=== PATIENT | male | born 1950 | race Caucasian/White ===

== ENCOUNTER 2019-03-03 13:52 | Inpatient (IN) | payer MEDICARE, MEDICAID ==
[~2019-03-03] VITALS: Ht 172.7 cm; Wt 78.6 kg
[2019-03-03] MEDS ORDERED: LORA-259 PO (17:24)
[2019-03-03] MEDS ORDERED: UNK BP MEDICATION PO (17:24)
[2019-03-03] MEDS ORDERED: SERT50TA PO (17:24)
[2019-03-03 17:39] VITALS: BP 152/100
[2019-03-03] MEDS ORDERED: hydrALAZINE HCL 25 MG TABLET PO PRN (18:00)
[2019-03-03] MEDS ORDERED: TEMAZEPAM 7.5 MG CAPSULE PO PRN (18:00)
[2019-03-03] MEDS ORDERED: PERMETHRIN 59 ML BOTTLE TP ONE (18:00)
[2019-03-03] MEDS ORDERED: MAG HYDROX/AL HYDROX/SIMETH 30 ML UDC PO PRN (18:00)
[2019-03-03] MEDS ORDERED: MAGNESIUM HYDROXIDE 30 ML UDC PO PRN (18:00)
--- NOTE | 2019-03-03 18:00 | NUR ---
MAIL PROCESSING ASSOCIATE NOTES PATIENT DIRECT ADMIT FROM [facility] ER ON DX OF SUICIDAL IDEATION. PATIENT A/O X3/4, DISTENDED ABDOMEN, NO ACUTE RESPIRATORY DISTRESS, COOPERATIVE. PATIENT DENIED SI/HI/AVH AT THIS TIME. FACE TO FACE ASSESSMENT DONE PATIENT ANXIOUS, DEPRESS, SHAKING HANDS. V/S TAKEN BP -152/100, P-107, R-20, T-97.8, O2-96 ROM AIR. SKIN ASSESSMENT DONE PICTURE TAKEN, FOUND PATIENT HAS A LICE ON HAIR. PATIENT TAKE SHOWER. PATIENT UNSTEADY GAIT USING WALKER. BELONGING AND CONTRABAND CHECKED. DR AHUJA AND DR KENT AWARE OF NEW PATIENT AND MEDICATION. CALL GARNETT NEAR TO REACH. CONTINUED MONITORING. ENDORSED ONCOMING NURSE FOLLOW PLAN OF CARE.
[2019-03-03] MEDS: LORAZEPAM 0.5 MG TABLET PO PRN (18:37)
[2019-03-03] MEDS: CHLORDIAZEPOXIDE HCL 25 MG CAPSULE PO SCH (18:37)
--- NOTE | 2019-03-03 18:37 | NUR ---
RN NOTES ADMINISTERED ATIVAN 1 MG PO PRN FOR ANXIETY PER PATIENT REQUEST, V/S TAKEN BP 152/100, P-107. CONTINUED MONITORING.
[2019-03-03 20:19] VITALS: BP 138/92
[2019-03-04 07:43] LABS: BILIRUBIN,TOTAL 1.1 mg/dL (0.2-1.0); CALCIUM, SERUM 8.3 mg/dL (8.5-10.1); CREATININE 0.8 mg/dL (0.6-1.3); POTASSIUM 3.7 mmol/L (3.5-5.1); TOTAL PROTEIN, SERUM 6.1 g/dL (6.4-8.2)
[2019-03-04 07:57] LABS: CHOLESTEROL 155 mg/dL (<200); HDL CHOLESTEROL 58 mg/dL (40-60); LDL 85 mg/dL (0-99); TRIGLYCERIDES 71 mg/dL (30-150)
[2019-03-04 08:00] VITALS: BP 138/69
[2019-03-04 08:34] LABS: THYROID STIMULATING HORMONE 2.049 uIU/mL (0.358-3.74)
[2019-03-04] MEDS: CHLORDIAZEPOXIDE HCL 25 MG CAPSULE PO SCH ×2 (09:28→17:39)
[2019-03-04] MEDS: LORAZEPAM 0.5 MG TABLET PO PRN ×2 (09:55→17:39)
[2019-03-04 16:00] VITALS: BP 132/71
[2019-03-04 20:00] VITALS: BP 125/72
[2019-03-04] MEDS: risperiDONE 1 MG TABLET PO SCH (20:54)
[2019-03-04] MEDS: SERTRALINE HCL 50 MG TABLET PO SCH (20:54)
[2019-03-04] MEDS: LITHIUM CARBONATE 150 MG CAPSULE PO SCH (22:05)
[2019-03-05 08:00] VITALS: BP 121/53
[2019-03-05] MEDS: LITHIUM CARBONATE 150 MG CAPSULE PO SCH ×2 (08:11→21:10)
[2019-03-05] MEDS: SERTRALINE HCL 50 MG TABLET PO SCH (08:11)
[2019-03-05] MEDS: CHLORDIAZEPOXIDE HCL 25 MG CAPSULE PO SCH ×2 (08:11→17:04)
[2019-03-05] MEDS: risperiDONE 1 MG TABLET PO SCH ×2 (08:11→20:44)
--- NOTE | 2019-03-05 15:13 | NUR ---
INITIAL DISCHARGE PLAN: Per pt he wishes to be discharged to a SNF. SW will help form a safe and proper discharge in collaboration with MD.
[2019-03-05 16:00] VITALS: BP 132/64
--- NOTE | 2019-03-05 16:00 | NUR ---
GROUP NOTE: Pt unable to attend due to being in isolation.
[2019-03-05 20:20] VITALS: BP 109/70
[2019-03-06 08:00] VITALS: BP 97/66
[2019-03-06] MEDS: CHLORDIAZEPOXIDE HCL 25 MG CAPSULE PO SCH ×2 (08:22→16:19)
[2019-03-06] MEDS: LITHIUM CARBONATE 150 MG CAPSULE PO SCH ×2 (08:22→21:15)
[2019-03-06] MEDS: SERTRALINE HCL 50 MG TABLET PO SCH (08:22)
[2019-03-06] MEDS: risperiDONE 1 MG TABLET PO SCH ×2 (08:22→21:15)
--- NOTE | 2019-03-06 15:40 | NUR ---
GROUP NOTE: SW prompted pt to attend group therapy on this present day pt stated, "I just want to rest right now it's been a long day."
--- NOTE | 2019-03-06 15:42 | NUR ---
GPS RN NOTE: PT HAIR WAS CHECKED NO LICE NOTED,DC ISOLATION.CN AWARE.
[2019-03-06 16:00] VITALS: BP 100/72
[2019-03-06 20:34] VITALS: BP 103/61
[2019-03-07 08:00] VITALS: BP 112/73
[2019-03-07] MEDS: risperiDONE 1 MG TABLET PO SCH ×2 (08:38→20:59)
[2019-03-07] MEDS: CHLORDIAZEPOXIDE HCL 25 MG CAPSULE PO SCH ×2 (08:38→17:34)
[2019-03-07] MEDS: SERTRALINE HCL 50 MG TABLET PO SCH (08:38)
[2019-03-07] MEDS: LITHIUM CARBONATE 150 MG CAPSULE PO SCH ×2 (08:41→20:59)
--- NOTE | 2019-03-07 15:20 | NUR ---
Group Note: SW prompted pt to attend group therapy but the pt was having difficulty with his speech and stated that he would like to remained seated in the activity room but not participate.
[2019-03-07 16:00] VITALS: BP 114/66
[2019-03-07] MEDS ORDERED: POLYVINYL ALCOHOL 15 ML BOTTLE EACHEYE PRN (17:00)
[2019-03-07 20:23] VITALS: BP 102/69
[2019-03-08 08:00] VITALS: BP 127/84
--- NOTE | 2019-03-08 08:34 | NUR ---
GRETA faxed SNF referral to Kait, hospital admissions officer at [facility] Address: [address], [place], [place] [address] for review.
[2019-03-08] MEDS: CHLORDIAZEPOXIDE HCL 25 MG CAPSULE PO SCH ×2 (09:19→16:27)
[2019-03-08] MEDS: risperiDONE 1 MG TABLET PO SCH ×2 (09:19→21:25)
[2019-03-08] MEDS: LITHIUM CARBONATE 150 MG CAPSULE PO SCH ×2 (09:19→21:24)
[2019-03-08] MEDS: SERTRALINE HCL 50 MG TABLET PO SCH (09:20)
--- NOTE | 2019-03-08 11:06 | NUR ---
SW received a call from Kait, hearing screen coordinator at [facility] Address: [address], [place], [place] [address] stating that pt cannot be accepted due to his substance abuse.
--- NOTE | 2019-03-08 11:09 | NUR ---
GRETA faxed SNF referral to [facility] ([facility]) Address: [facility] [place] [address] for review.
--- NOTE | 2019-03-08 13:11 | NUR ---
SW received a call from Naima, vocational coordinator at [facility] ([facility]) Address: [facility] [place] [address] stating pt has been accepted to the facility.
--- NOTE | 2019-03-08 13:15 | NUR ---
Group Note Goal: Patient will attend group being held today from 10am -10:30 in the activities room and participate and/or actively listen to peers and be respectful. Intervention: SW invited patient to attend group session with peers regarding their support system. Response: Patient was sleeping and did not attend group. Plan: Patient will be invited to attend next social director group session held.
[2019-03-08 16:00] VITALS: BP 96/70
--- NOTE | 2019-03-08 17:54 | NUR ---
GPS RN NOTE PAGED EPIC FOR REGARDING PT LEFT EYE WHICH IS RED AND NOW HAS WHITE, STICKY DISCHARGE THAT IS NOT ALLEVIATED BY ARTIFICIAL TEAR GTTS ORDERED. AWAITING RESPONSE. PT DENIES PAIN OR CHANGES IN VISION AT THIS TIME.
--- NOTE | 2019-03-08 19:39 | NUR ---
GPS RN NOTE, RECEIVED PATIENT AWAKE AND IN BED, NO S/S OR COMPLAINTS OF PAIN AT THIS TIME. PATIENT IS DISPLAYING NO S/S OF APPARENT DISTRESS AT THIS TIME. PATIENT BREATHING IS UNLABORED WITH EQUAL RISE AND FALL OF THE CHEST. PATIENT IS ALERT AND ORIENTED X 1-2 ON ROOM AIR WITH A SPO2 OF 94 %. PATIENT IS MED COMPLAINT, DISORGANIZED, ANXIOUS, COOPERATIVE, CONFUSED, AND NEEDS REORIENTATION. PATIENT DENIES SUICIDE AND HOMICIDAL IDEATIONS AT THIS TIME. PATIENT ASSISTED WITH TURNING AND REPOSITIONING Q2HR AND PRN FOR COMFORT AND CIRCULATION. PATIENT HAS NO NEEDS AT THIS TIME. PATIENT EDUCATED ON THE USE OF THE CALL AGRNETT. PATIENT BED SIDE RAILS ARE UP X 2 FOR SAFETY, BED IS LOCKED, AND LOW WILL CONTINUE TO MONITOR AND MAINTAIN SAFETY.
[2019-03-08 20:00] VITALS: BP 109/68
[2019-03-08] MEDS ORDERED: CIPROFLOXACIN HCL 0.3% 5 ML BOTTLE EACHEYE SCH (20:00)
[2019-03-08] MEDS: CIPROFLOXACIN HCL 0.3% 5 ML BOTTLE EACHEYE SCH ×2 (21:25→23:39)
[2019-03-09] MEDS ORDERED: Z GUARD REMEDY 2 OZ OINT TP PRN (03:30)
[2019-03-09] MEDS: CIPROFLOXACIN HCL 0.3% 5 ML BOTTLE EACHEYE SCH ×3 (05:15→18:18)
[2019-03-09 08:00] VITALS: BP 135/75
[2019-03-09] MEDS: risperiDONE 1 MG TABLET PO SCH ×2 (08:29→19:46)
[2019-03-09] MEDS: CHLORDIAZEPOXIDE HCL 25 MG CAPSULE PO SCH ×2 (08:29→16:44)
[2019-03-09] MEDS: SERTRALINE HCL 50 MG TABLET PO SCH (08:29)
[2019-03-09] MEDS: LITHIUM CARBONATE 150 MG CAPSULE PO SCH ×2 (08:29→20:34)
[2019-03-09 15:56] VITALS: BP 104/60
[2019-03-09] MEDS: ACETAMINOPHEN 325 MG TABLET PO PRN (19:44)
--- NOTE | 2019-03-09 19:45 | NUR ---
C/O PAIN ON BOTH LEGS, TYLENOL 650 MG PO GIVEN.
[2019-03-09 20:00] VITALS: BP 106/70
[2019-03-10] MEDS: CIPROFLOXACIN HCL 0.3% 5 ML BOTTLE EACHEYE SCH ×4 (00:42→17:12)
[2019-03-10 08:00] VITALS: BP 103/63
[2019-03-10] MEDS: risperiDONE 1 MG TABLET PO SCH (08:30)
[2019-03-10] MEDS: CHLORDIAZEPOXIDE HCL 25 MG CAPSULE PO SCH ×2 (08:30→16:06)
[2019-03-10] MEDS: LITHIUM CARBONATE 150 MG CAPSULE PO SCH (08:30)
[2019-03-10] MEDS: SERTRALINE HCL 50 MG TABLET PO SCH (08:30)
[2019-03-10] MEDS: ACETAMINOPHEN 325 MG TABLET PO PRN (15:33)
--- NOTE | 2019-03-10 15:48 | NUR ---
pt with temp of 100.2 F. pt given tylenol po x 1.
[2019-03-10 16:00] VITALS: BP 90/58
--- NOTE | 2019-03-10 16:54 | NUR ---
mentation/baseline changed from earlier this morning. pt drowsy/lethargic. difficult to arouse. going to sleep without stimuli. vital sign 100.2 F (tylenol given), multiple BP reading in the mid 80s'; latest 83/58, heart rate in the 70s, and room air saturating 93-94%. X-ray ordered (reason = congestion/sob) and read to the primary doctor. per MD, possible early onset pneumonia. ok to transfer to tele floor. psych md notified and agrees with transfer. per psych md to continue psych meds and continue hold. joan zavala at bedside for eval. will provide further care once patient is transfer to tele floor.
--- NOTE | 2019-03-10 18:04 | NUR ---
pt accepted 3rd floor tele unit. pt going to room 324A. Accepting practitioner is ARUN Umaña. Report given to receiving nurse, CARMEN Gracia. exit care done. skin clear. belongings with patient. original hold with given to primary nurse. pt left in stable condition.
[2019-03-11] MEDS ORDERED: LITH300T3 PO (01:14)
[2019-03-11] MEDS ORDERED: LORA-259 PO (01:14)
[2019-03-11] MEDS ORDERED: CHLO25CA22 PO (01:14)
[2019-03-11] MEDS ORDERED: HYDR-4076 PO (01:14)
[2019-03-11] MEDS ORDERED: CIPR2.5D LEFTEYE (01:14)
[2019-03-11] MEDS ORDERED: RISP1TAB7 PO (01:14)
[2019-03-11] MEDS ORDERED: CIPR2.5D RIGHTEYE (01:14)
[2019-03-11] MEDS ORDERED: POLY15DR40 OP (01:14)
[2019-03-11] MEDS ORDERED: SERT50TA PO (01:14)
--- NOTE | 2019-03-11 09:45 | NUR ---
DISCHARGE NOTE: pt was discharged on 03/10/19 to Telemetry Unit due to Pneumonia.
== END 2019-03-10 18:38 | disposition short-term general hospital (02) | DRG 885 ==
LOC: GPS 16:45
PROVIDERS: ADMIT Psychiatry & Neurology Psychiatry; ATTEND Student in an Organized Health Care Education/Training Program
DX: F31.5 Bipolar disorder, current episode depressed, severe, with psychotic features (principal); F10.239 Alcohol dependence with withdrawal, unspecified; E44.1 Mild protein-calorie malnutrition; I10 Essential (primary) hypertension; B85.2 Pediculosis, unspecified; E88.09 Other disorders of plasma-protein metabolism, not elsewhere classified; Z68.26 Body mass index [BMI] 26.0-26.9, adult
CPT/HCPCS: 36415; 71045-TC; 80053-TC; 80061-TC; 84443-TC; 87081-TC; 97116-TC; 97530-TC

== ENCOUNTER 2019-03-10 18:48 | Inpatient (IN) | payer MEDICARE, OTHER ==
[~2019-03-10] VITALS: Ht 172.7 cm; Wt 79.4 kg
[2019-03-10 08:00] VITALS: BP 95/53
--- NOTE | 2019-03-10 18:52 | NUR ---
ADMISSION NOTE PT BROUGHT UP VIA BED AT THIS TIME, A/O X1-2 BREATHING EVEN AND UNLABORED ON RA, NO S/S OF ANY DISTRESS OR PAIN NOTED AT THIS TIME, RIGHT HAND GAUGE 20 IV STARTED, ON A 5250 HOLD WITH SITTER PRESENT AT BEDSIDE, HOSPITALIST SANDY MADE AWARE PT ON THE FLOOR AWAITING ADMITTING ORDERS. VS FOLLOWS: BP 93/56, PULSE 82, RR 20, TEMP 98.4, O2 93% ON RA. SAFETY PRECAUTIONS IN PLACE, CALL LIGHT WITHIN REACH, WILL ENDORSE TO NIGHT RN FOR STARR.
[2019-03-10 19:30] VITALS: BP 95/55
[2019-03-10] MEDS ORDERED: HYDROCODONE/APAP 5/325MG 1 EACH TABLET PO PRN (19:30)
[2019-03-10] MEDS ORDERED: Z GUARD REMEDY 2 OZ OINT TP PRN (19:30)
[2019-03-10] MEDS ORDERED: ZOLPIDEM TARTRATE 5 MG TABLET PO PRN (19:30)
[2019-03-10] MEDS ORDERED: ONDANSETRON HCL/PF 4 MG/2 ML VIAL IVP PRN (19:30)
[2019-03-10] MEDS ORDERED: MAGNESIUM HYDROXIDE 30 ML UDC PO PRN (19:30)
[2019-03-10] MEDS: ACETYLCYSTEINE 20% SOLN 800 MG/4 ML VIAL NEB SCH ×2 (19:30→22:42)
[2019-03-10] MEDS ORDERED: ACETAMINOPHEN 325 MG TABLET PO PRN (19:30)
--- NOTE | 2019-03-10 19:30 | NUR ---
GEAR GRINDER OPENING NOTES: RECEIVED PT ON 2LPM VIA NC AND IS TOLERATING WELL. NOTED PT TO BE VERY CONGESTED. PT ALERT AND ORIENTED TO SELF ONLY. PT HAS UNCLEAR SPEECH. PT REORIENTED. PT ALSO LETHARGIC AND IS AROUSABLE TO TOUCH. PT HAS IV ON R HAND #20G AND IS TO BE STARTED ON IV NS AT 100ML/HR. PT ON TELE MONITOR AND READING SHOWS SR 81. SITTER AT BEDSIDE FOR SAFETY PRECAUTIONS. BED KEPT IN LOW, LOCKED POSITION, AND SIDE RAILS X 2UP. WILL CONTINUE TO MONITOR PT.
[2019-03-10] MEDS: IV NS 0.9% 1,000 ML IV PRN (19:31)
[2019-03-10] MEDS: IPRATROPIUM NEB FS 0.5 MG/2.5 ML AMPUL.NEB NEB SCH ×2 (19:36→22:42)
[2019-03-10] MEDS: ALBUTEROL HALF STRENGTH 1.25 MG/3 ML VIAL.NEB NEB SCH ×2 (19:36→22:42)
--- NOTE | 2019-03-10 19:48 | NUR ---
AIR CONTROL/ANTI AIR WARFARE OFFICER NOTES: SPOKE WITH INTAKE CLINICIAN BEAR DELGADO. KEEP PT NPO FOR NOW HE IS VERY CONGESTED. ORDER STAT CBC, CMP, MAG, AND PHOS. ALSO ORDER SWALLOW AFTER AFTER HIS SECRETIONS CLEAR UP. Addendum: 03/10/19 at 2346 by WALT CHAMPAGNE RN SWALLOW EVAL
[2019-03-10 19:50] LABS: BASOPHILS # (AUTO) 0.1 /CMM (0.0-0.2); BASOPHILS % (AUTO) 0.4 % (0.0-2.0); EOSINOPHILS % (AUTO) 0.9 % (0.0-6.0); HEMATOCRIT 39 % (39-51); HEMOGLOBIN 13.2 g/dL (13.5-17.5); LYMPHOCYTES # (AUTO) 1.4 /CMM (0.8-4.8); LYMPHOCYTES % (AUTO) 10.4 % (20.0-44.0); MEAN CORPUSCULAR HGB CONC 34 g/dl (31.0-36.0); MEAN CORPUSCULAR VOLUME 101 fL (80-96); MONOCYTES # (AUTO) 1.6 /CMM (0.1-1.30); MONOCYTES % (AUTO) 11.8 % (2.0-12.0); NEUTROPHILS # (AUTO) 10.4 /CMM (1.8-8.9); NEUTROPHILS % (AUTO) 76.5 % (43.0-81.0); PLATELET COUNT (AUTO) 228 /CMM (150-450); RED BLOOD CELL COUNT(AUTO) 3.86 MIL/uL (4.5-6.0); WHITE BLOOD COUNT (AUTO) 13.6 K/uL (4.3-11.0)
--- NOTE | 2019-03-10 19:58 | NUR ---
DATA CENTER PROJECT MANAGER NOTES: COLLECTED MRSA SWAB FOR BOTH NARES AND PLACED IN REFRIGERATOR.
[2019-03-10 20:24] LABS: ALBUMIN 2.5 g/dL (3.4-5.0); CALCIUM, SERUM 8.1 mg/dL (8.5-10.1); MAGNESIUM 2.1 mg/dL (1.8-2.4); PHOSPHORUS 4.5 mg/dL (2.5-4.9)
[2019-03-10 20:38] LABS: BILIRUBIN,TOTAL 0.8 mg/dL (0.2-1.0); TOTAL PROTEIN, SERUM 5.9 g/dL (6.4-8.2)
[2019-03-10] MEDS ORDERED: IV NS 0.9% 1,000 ML IV PRN (21:00)
[2019-03-10] MEDS ORDERED: PIPERACILLIN /TAZOBACTAM 3.375 G VIAL IV ONE (23:31)
[2019-03-10] MEDS: PIPERACILLIN /TAZOBACTAM 3.375 G in IV NS 0.9% 50 ML IV SCH (23:34)
--- NOTE | 2019-03-10 23:34 | NUR ---
SET ILLUSTRATOR NOTES: HAD TO MANUALLY ADMIN ZOSYN 3.375G CHARGE NURSE OVERRODE MED. BARGUN NOT SCANNING ABX.
[2019-03-11] VITALS: BP 116/77
[2019-03-11] MEDS ORDERED: POLY15DR40 OP (01:14)
[2019-03-11] MEDS ORDERED: CIPR2.5D LEFTEYE (01:14)
[2019-03-11] MEDS ORDERED: CIPR2.5D RIGHTEYE (01:14)
[2019-03-11] MEDS ORDERED: LITH300T3 PO (01:14)
[2019-03-11] MEDS ORDERED: SERT50TA PO (01:14)
[2019-03-11] MEDS ORDERED: CHLO25CA22 PO (01:14)
[2019-03-11] MEDS ORDERED: HYDR-4076 PO (01:14)
[2019-03-11] MEDS ORDERED: LORA-259 PO (01:14)
[2019-03-11] MEDS ORDERED: RISP1TAB7 PO (01:14)
[2019-03-11] MEDS: ALBUTEROL HALF STRENGTH 1.25 MG/3 ML VIAL.NEB NEB SCH ×6 (02:47→23:14)
[2019-03-11] MEDS: IPRATROPIUM NEB FS 0.5 MG/2.5 ML AMPUL.NEB NEB SCH ×6 (02:47→23:14)
--- NOTE | 2019-03-11 03:54 | NUR ---
SILO PAINTER NOTES: BLADDER SCAN PERFORMED. 174ML NOTED. WILL REASSESS.
[2019-03-11 04:00] VITALS: BP 100/43
[2019-03-11] MEDS: IV NS 0.9% 1,000 ML IV PRN ×2 (05:13→20:10)
[2019-03-11] MEDS ORDERED: PIPERACILLIN /TAZOBACTAM 3.375 G VIAL IV ONE (05:40)
[2019-03-11] MEDS: PIPERACILLIN /TAZOBACTAM 3.375 G in IV NS 0.9% 50 ML IV SCH (05:43)
--- NOTE | 2019-03-11 05:43 | NUR ---
PSYCHOLOGICAL SCIENCE PROFESSOR NOTES: ZOSYN 3.375G WAS MANUALLY ADMINISTERED BAR GUN NOT SCANNING MED. CHARGE NURSE OVERRODE MED.
--- NOTE | 2019-03-11 06:38 | NUR ---
MATERIAL CUTTER NOTES: PERFORMED BLADDER SCAN AND SAW THAT THERE IS 349-420ML IN BLADDER. INFORMED FILENET P8 DEVELOPER HARINDER MILLARD. NO ORDERS AT THIS TIME.
--- NOTE | 2019-03-11 06:38 | NUR ---
EPIC WILLOW SPECIALIST CLOSING NOTES: ALL NEEDS WERE ATTENDED AND ANTICIPATED FOR. PT KEPT CLEAN, DRY, AND COMFORTABLE. SITTER REMAINS AT BEDSIDE. PT NPO UNTIL SPEECH THERAPIST ASSESSES PT. PT HAS IV ON R HAND #20G AND IS BEING INFUSED WITH IV NS AT 100ML/HR. PT MORE ALERT COMPARED TO BEGINNING OF SHIFT. PT A/XO2-3. PT REMAINS ON 2LPM VIA NC AND IS TOLERATING WELL. ALTHOUGH SPEECH IS UNCLEAR, PT ABLE TO MAKE NEEDS KNOWN. PT ON TELE MONITOR AND READING SHOWS SR 69.
--- NOTE | 2019-03-11 06:49 | NUR ---
KAYDEN MORALES NOTES: ARUN MILLARD JUST ORDERED PLASENCIA CATHETER.
--- NOTE | 2019-03-11 07:15 | NUR ---
BUSINESS OBJECTS REPORT DEVELOPER OPENING NOTE RECEIVED PT IN BED, ALERT AND ORIENTED X1-2, BREATHING IS EVEN AND UNLABORED ON ROOM AIR, NO ACUTE DISTRESS NOTED AT THIS TIME. PT ON DATA ENTRY MACHINE OPERATOR AND IS SINUS RHYTHM, HR 69. RIGHT HAND #20G IS INFUSING ORDERED WITHOUT REDNESS OR SWELLING. PT WITH SITTER PER PROTOCOL, ALL NEEDS ATTENDED TO, ASPIRATION PRECAUTIONS MAINTAINED. BED IS LOCKED AND IN LOWEST POSITION, SIDE RAILS UP X2, BED ALARM ON, CALL LIGHT AND POSSESSIONS WITHIN REACH.
[2019-03-11] MEDS: ACETYLCYSTEINE 20% SOLN 800 MG/4 ML VIAL NEB SCH ×3 (07:35→23:14)
[2019-03-11 08:00] VITALS: BP 105/67
--- NOTE | 2019-03-11 08:00 | NUR ---
PAPER MACHINE SUPERVISOR NOTE 16 BELARUSIAN PLASENCIA CATHETER INSERTED UTILIZING STERILE TECHNIQUE. 420ML OF DARK YELLOW, CLEAR URINE OUTPUT. PT TOLERATED PROCEDURE WELL.
[2019-03-11 08:37] LABS: BASOPHILS % (AUTO) 0.3 % (0.0-2.0); EOSINOPHILS % (AUTO) 0.8 % (0.0-6.0); HEMATOCRIT 39 % (39-51); HEMOGLOBIN 13.2 g/dL (13.5-17.5); LYMPHOCYTES # (AUTO) 1.4 /CMM (0.8-4.8); LYMPHOCYTES % (AUTO) 11.9 % (20.0-44.0); MEAN CORPUSCULAR HGB CONC 34 g/dl (31.0-36.0); MEAN CORPUSCULAR VOLUME 101 fL (80-96); MONOCYTES # (AUTO) 1.6 /CMM (0.1-1.30); MONOCYTES % (AUTO) 13.4 % (2.0-12.0); NEUTROPHILS # (AUTO) 8.7 /CMM (1.8-8.9); NEUTROPHILS % (AUTO) 73.6 % (43.0-81.0); PLATELET COUNT (AUTO) 226 /CMM (150-450); RED BLOOD CELL COUNT(AUTO) 3.89 MIL/uL (4.5-6.0); WHITE BLOOD COUNT (AUTO) 11.8 K/uL (4.3-11.0)
[2019-03-11 09:04] LABS: MAGNESIUM 2.1 mg/dL (1.8-2.4); PHOSPHORUS 3.7 mg/dL (2.5-4.9)
[2019-03-11 11:09] LABS: APPEARANCE,URINE TURBID (CLEAR); BILIRUBIN,URINE 1+ (NEGATIVE); BLOOD, URINE NEGATIVE Ery/uL (NEGATIVE); COLOR,URINE DARK YELLO (YELLOW); KETONES,URINE NEGATIVE (NEGATIVE); LEUKOCYTE ESTERASE ,URINE NEGATIVE (NEGATIVE); NITRITE, URINE NEGATIVE (NEGATIVE); PROTEIN,URINE NEGATIVE (NEGATIVE); UGLUCOSE NEGATIVE (NEGATIVE)
[2019-03-11] MEDS ORDERED: LORAZEPAM 1 MG TABLET PO PRN (11:30)
[2019-03-11] MEDS ORDERED: hydrALAZINE HCL 25 MG TABLET PO PRN (11:30)
[2019-03-11 11:32] LABS: BACTERIA,URINE None seen /HPF (None Seen); RBC,URINE NONE SEEN /HPF (0-2); URINE AMORPHOUS URATE Many /HPF (None Seen); WBC,URINE NONE SEEN /HPF (0-3)
[2019-03-11] MEDS: PIPERACILLIN /TAZOBACTAM 3.375 G in IV D5W 100 ML IV SCH ×2 (11:54→20:04)
[2019-03-11] MEDS: risperiDONE 1 MG TABLET PO SCH ×2 (11:55→20:16)
[2019-03-11] MEDS: SERTRALINE HCL 50 MG TABLET PO SCH (11:55)
[2019-03-11] MEDS: LITHIUM CARBONATE 150 MG CAPSULE PO SCH ×2 (11:55→20:16)
[2019-03-11] MEDS ORDERED: CIPROFLOXACIN HCL 0.3% 5 ML BOTTLE RIGHTEYE SCH (12:00)
[2019-03-11] MEDS: CIPROFLOXACIN HCL 0.3% 5 ML BOTTLE EACHEYE SCH ×2 (12:11→17:06)
[2019-03-11 15:18] LABS: SQUAMOUS EPITHELIAL CELL,UR Few /HPF (None Seen)
--- NOTE | 2019-03-11 15:20 | NUR ---
MS RN NOTE PER RADIOLOGY THEY WILL BE UP FOR CHEST X RAY SHORTLY.
[2019-03-11 16:00] VITALS: BP 103/68
--- NOTE | 2019-03-11 17:00 | NUR ---
MS RN NOTE PER RADIOLOGY THEY WILL SEND SOMEONE UP FOR CHEST X RAY SHORTLY, THEY WERE BACKED UP DUE TO ER PATIENTS.
--- NOTE | 2019-03-11 18:22 | NUR ---
MS RN CLOSING NOTE PT IN BED, ALERT AND ORIENTED X1-2, BREATHING IS EVEN AND UNLABORED ON 3L NC. NO ACUTE DISTRESS NOTED AT THIS TIME. RIGHT HAND #20G IS INFUSING ORDERED WITHOUT REDNESS OR SWELLING. ADLS PROVIDED AND PT ASSISTED TO TURN AND REPOSITION Q2H FOR THE DURATION OF THE SHIFT. PT WITH SITTER PER PROTOCOL DUE TO 5250 HOLD THAT EXPIRES ON 03/19, ALL NEEDS ATTENDED TO, ASPIRATION PRECAUTIONS MAINTAINED. BED IS LOCKED AND IN LOWEST POSITION, SIDE RAILS UP X2, BED ALARM ON, CALL LIGHT AND POSSESSIONS WITHIN REACH. WILL ENDORSE TO WAREHOUSE SHIPPING CLERK NURSE FOR CONTINUITY OF CARE.
--- NOTE | 2019-03-11 19:23 | NUR ---
MS RN OPENING NOTES: RECEIVED PT ON 2LPM VIA NC AND IS TOLERATING WELL. NO SOB NOTED. NO S/S OF DISTRESS. PT JUST APPEARS TO BE AGITATED SINCE HE SAID HE DID NOT GET REAL DINNER. SITTER AT BEDSIDE. SITTER INFORMED HIM THAT HE DID GET A DINNER PLATE. EXPLAINED TO PT THAT HE IS ON PUREED DIET AND THAT HE HAS SWALLOW PRECAUTIONS. PT UPSET THAT IT WAS NOT EXPLAINED TO HIM BY THERAPIST. CALLED KITCH[facility] BUT THEY ARE CLOSED. PT HAS IV ON R HAND #20G AND IS BEING INFUSED WITH IV NS AT 100ML/HR. PT HAS PLASENCIA CATH AND IS ATTACHED TO DRAINAGE BAG WITH URINE DRAINING. BED KEPT IN LOW, LOCKED POSITION, AND SIDE RAILS X 2UP. WILL CONTINUE TO MONITOR PT.
[2019-03-11 20:00] VITALS: BP 100/70
--- NOTE | 2019-03-11 21:10 | NUR ---
MS RN NOTES: DR. RICCI AT BEDSIDE.
[2019-03-12] MEDS: CIPROFLOXACIN HCL 0.3% 5 ML BOTTLE EACHEYE SCH ×4 (00:19→17:11)
[2019-03-12] MEDS: ALBUTEROL HALF STRENGTH 1.25 MG/3 ML VIAL.NEB NEB SCH ×6 (03:57→23:30)
[2019-03-12] MEDS: IPRATROPIUM NEB FS 0.5 MG/2.5 ML AMPUL.NEB NEB SCH ×6 (03:57→23:30)
[2019-03-12] MEDS: PIPERACILLIN /TAZOBACTAM 3.375 G in IV D5W 100 ML IV SCH ×3 (04:00→20:26)
[2019-03-12 06:38] LABS: BASOPHILS % (AUTO) 0.2 % (0.0-2.0); EOSINOPHILS % (AUTO) 1.7 % (0.0-6.0); HEMATOCRIT 37 % (39-51); HEMOGLOBIN 12.6 g/dL (13.5-17.5); LYMPHOCYTES % (AUTO) 11.4 % (20.0-44.0); MEAN CORPUSCULAR HGB CONC 35 g/dl (31.0-36.0); MEAN CORPUSCULAR VOLUME 100 fL (80-96); MONOCYTES # (AUTO) 0.8 /CMM (0.1-1.30); MONOCYTES % (AUTO) 9.7 % (2.0-12.0); NEUTROPHILS # (AUTO) 6.5 /CMM (1.8-8.9); PLATELET COUNT (AUTO) 279 /CMM (150-450); RED BLOOD CELL COUNT(AUTO) 3.65 MIL/uL (4.5-6.0); WHITE BLOOD COUNT (AUTO) 8.4 K/uL (4.3-11.0)
--- NOTE | 2019-03-12 06:42 | NUR ---
MS RN CLOSING NOTES: ALL NEEDS WERE ATTENDED AND ANTICIPATED FOR. SITTER REMAINS AT BEDSIDE. PT REMAINS ON 2LPM VIA NC AND IS TOLERATING WELL. PT ASLEEP AT THIS TIME AND RESTING COMFORTABLY. PT TURNED AND REPOSITIONED Q2HRS. PT HAS IV ON R HAND #20G AND IS BEING INFUSED WITH ZOSYN AT 25ML/HR. PLASENCIA CATH REMAINS IN PLACE WITH URINE DRAINING. OUTPUT WAS 1100ML. BED KEPT IN LOW, LOCKED POSITION, AND SIDE RAILS X 2UP. WILL ENDORSE TO AM NURSE FOR STARR .
[2019-03-12 07:11] LABS: CALCIUM, SERUM 8.1 mg/dL (8.5-10.1); MAGNESIUM 2.4 mg/dL (1.8-2.4); PHOSPHORUS 2.8 mg/dL (2.5-4.9); POTASSIUM 3.9 mmol/L (3.5-5.1)
--- NOTE | 2019-03-12 07:25 | NUR ---
MS RN OPENING NOTE RECEIVED PT IN BED, ALERT AND ORIENTED X1-2, BREATHING IS EVEN AND UNLABORED ON ROOM AIR, NO ACUTE DISTRESS NOTED AT THIS TIME. RIGHT HAND #20G IS INFUSING NS @ 100ML/HR WITHOUT REDNESS OR SWELLING. PLASENCIA CATHETER NOTED TO BE DRAINING CLEAR, PRERNA URINE. PT WITH SITTER PER PROTOCOL, ALL NEEDS ATTENDED TO, ASPIRATION PRECAUTIONS MAINTAINED. BED IS LOCKED AND IN LOWEST POSITION, SIDE RAILS UP X2, BED ALARM ON, CALL LIGHT AND POSSESSIONS WITHIN REACH.
[2019-03-12 08:00] VITALS: BP 112/68
[2019-03-12] MEDS: risperiDONE 1 MG TABLET PO SCH ×2 (08:08→20:26)
[2019-03-12] MEDS: LITHIUM CARBONATE 150 MG CAPSULE PO SCH ×2 (08:08→20:26)
[2019-03-12] MEDS: SERTRALINE HCL 50 MG TABLET PO SCH (08:08)
[2019-03-12] MEDS: ACETYLCYSTEINE 20% SOLN 800 MG/4 ML VIAL NEB SCH ×3 (09:08→23:30)
--- NOTE | 2019-03-12 10:24 | NUR ---
WOUND CARE CONSULT: PT PRESENTS WITH BLANCHABLE REDNESS TO BUTTOCKS, ERINN FERMIN NOTED, PRESENT ON ADMISSION. RECOMMENDATIONS MADE FOR SKIN PROTECTION. DISCUSSED WITH NURSING STAFF. PT AGITATED AT TIMES. WILL SEE PRN. HUDSON IN AGREEMENT WITH PLAN OF CARE. CURRENT EMMA SCORE IS 14. Addendum: 03/12/19 at 1026 by YOLY BALDWIN WNDNU Amended: Links added.
--- NOTE | 2019-03-12 10:56 | NUR ---
MS RN NOTE PROVIDED CONTACT INFORMATION FOR BROTHER TIKA MELÉNDEZ [phone] AND AND BROTHER JF MELÉNDEZ [phone] TO SMALL WIND ENERGY INSTALLER [place].
[2019-03-12 16:00] VITALS: BP 96/64
[2019-03-12] MEDS: IV NS 0.9% 1,000 ML IV PRN (17:57)
--- NOTE | 2019-03-12 18:30 | NUR ---
MS RN CLOSING NOTE PT IN BED, ALERT AND ORIENTED X1-2, BREATHING IS EVEN AND UNLABORED ON 3L NC. NO ACUTE DISTRESS NOTED AT THIS TIME. RIGHT HAND #20G IS INFUSING ORDERED WITHOUT REDNESS OR SWELLING. ADLS PROVIDED AND PT ASSISTED TO TURN AND REPOSITION Q2H FOR THE DURATION OF THE SHIFT. PT WITH SITTER PER PROTOCOL DUE TO 5250 HOLD THAT EXPIRES ON 03/19, ALL NEEDS ATTENDED TO, ASPIRATION PRECAUTIONS MAINTAINED. BED IS LOCKED AND IN LOWEST POSITION, SIDE RAILS UP X2, BED ALARM ON, CALL LIGHT AND POSSESSIONS WITHIN REACH. WILL ENDORSE TO RETAIL SUPPORT SPECIALIST NURSE FOR CONTINUITY OF CARE.
[2019-03-12 20:00] VITALS: BP 101/62
--- NOTE | 2019-03-12 20:00 | NUR ---
MS RN NOTES RECEIVED PATIENT AWAKE AND CALM IN BED WITH NO DISTRESS NOTED. CALL LIGHT WITHIN REACH. SITTER AT BEDSIDE. NO C/O PAIN OR DISCOMFORT. PERIPHERAL LINE INTACT AND PATENT. BED IN LOW LOCK SETTING. ALL BELONGINGS KEPT NEAR BEDSIDE. WILL CONTINUE TO MONITOR.
[2019-03-13] MEDS: CIPROFLOXACIN HCL 0.3% 5 ML BOTTLE EACHEYE SCH ×5 (00:41→23:26)
[2019-03-13] MEDS: ALBUTEROL HALF STRENGTH 1.25 MG/3 ML VIAL.NEB NEB SCH ×6 (03:30→23:52)
[2019-03-13] MEDS: IPRATROPIUM NEB FS 0.5 MG/2.5 ML AMPUL.NEB NEB SCH ×6 (03:30→23:52)
[2019-03-13] MEDS: PIPERACILLIN /TAZOBACTAM 3.375 G in IV D5W 100 ML IV SCH ×3 (04:05→19:57)
--- NOTE | 2019-03-13 06:07 | NUR ---
MS RN NOTES PATIENT ASLEEP IN BED WITH NO DISTRESS NOTED. CALL LIGHT WITHIN REACH. SITTER AT BEDSIDE. ALL DUE MEDS GIVEN ORDERED WITH NO ASE. NO C/O PAIN OF DISCOMFORT. PERIPHERAL LINE INTACT AND PATENT. PATIENT CALM AND COOPERATIVE WITH NURSING CARE DURING SHIFT. FC INTACT, PATENT, AND DRAINED 600ML CLEAR PRERNA URINE. BED IN LOW LOCK SETTING. ALL BELONGINGS KEPT NEAR BEDSIDE. WILL ENDORSE TO ONCOMING SHIFT.
[2019-03-13 06:29] LABS: BASOPHILS % (AUTO) 0.6 % (0.0-2.0); EOSINOPHILS % (AUTO) 2.7 % (0.0-6.0); HEMATOCRIT 35 % (39-51); HEMOGLOBIN 11.7 g/dL (13.5-17.5); LYMPHOCYTES # (AUTO) 1.5 /CMM (0.8-4.8); LYMPHOCYTES % (AUTO) 19.5 % (20.0-44.0); MEAN CORPUSCULAR HGB CONC 34 g/dl (31.0-36.0); MEAN CORPUSCULAR VOLUME 100 fL (80-96); MONOCYTES % (AUTO) 13.1 % (2.0-12.0); NEUTROPHILS % (AUTO) 64.1 % (43.0-81.0); PLATELET COUNT (AUTO) 300 /CMM (150-450); RED BLOOD CELL COUNT(AUTO) 3.48 MIL/uL (4.5-6.0); WHITE BLOOD COUNT (AUTO) 7.7 K/uL (4.3-11.0)
[2019-03-13 06:56] LABS: CALCIUM, SERUM 8.1 mg/dL (8.5-10.1); CREATININE 0.9 mg/dL (0.6-1.3); MAGNESIUM 2.6 mg/dL (1.8-2.4); PHOSPHORUS 4.1 mg/dL (2.5-4.9); POTASSIUM 4.3 mmol/L (3.5-5.1)
[2019-03-13 08:00] VITALS: BP 120/75
--- NOTE | 2019-03-13 08:00 | NUR ---
MS/RN - Assessment Patient in bed awake, calm, cooperative, compliant with medications, A/O x 2, forgetful, confused, reality orientation provided, denies pain, no c/o shortness of breath, remain afebrile, sitter at bedside for safety and close monitoring. NS at 100 ml/hr infusing well on the right hand with no signs of infiltration. Patient on Zosyn and scheduled breathing treatment for pneumonia. Labs reviewed noted with elevated magnesium level, will relay to ARUN Sanchez. Fall and aspiration precautions maintained. Will continue with current medical management.
[2019-03-13] MEDS: ACETYLCYSTEINE 20% SOLN 800 MG/4 ML VIAL NEB SCH ×3 (08:04→23:51)
[2019-03-13] MEDS: LITHIUM CARBONATE 150 MG CAPSULE PO SCH ×2 (08:05→21:28)
[2019-03-13] MEDS: risperiDONE 1 MG TABLET PO SCH ×2 (08:05→21:28)
[2019-03-13] MEDS: SERTRALINE HCL 50 MG TABLET PO SCH (08:05)
--- NOTE | 2019-03-13 10:00 | NUR ---
MS/RN - Notes Seen and examined by Laura Umaña NP with new orders.
[2019-03-13] MEDS: GUAIFENESIN LA 600 MG TABLET.SA PO SCH ×2 (11:06→21:28)
[2019-03-13] MEDS: IV NS 0.9% 1,000 ML IV PRN (11:25)
--- NOTE | 2019-03-13 13:00 | NUR ---
MS/RN - Notes Patient resting comfortably, denies pain, not in any form of distress, calm and cooperative with care. Sitter at bedside for close monitoring.
[2019-03-13 16:07] VITALS: BP 118/73
--- NOTE | 2019-03-13 17:50 | NUR ---
MS/RN - End of shift summary No new events seen, remain afebrile, no c/o pain, currently on oxygen at 2lpm via NC, no apparent distress noted. Anticipate discharge tomorrow if stable overnight. Will continue with current medical management.
--- NOTE | 2019-03-13 19:30 | NUR ---
RN NOTES RECEIVED PT. AWAKE ON BED, A/OX2, SITTER AT BEDSIDE, F/C DRAINING CLEAR YELLOW URINE, , NO PAIN NOTED, NO SOB . CALL LIGHT WITHIN REACH, SIDERAILSUPX2, CONTINUE TO MONITOR
[2019-03-13 20:00] VITALS: BP 121/70
[2019-03-14] MEDS: IPRATROPIUM NEB FS 0.5 MG/2.5 ML AMPUL.NEB NEB SCH ×4 (03:07→15:35)
[2019-03-14] MEDS: ALBUTEROL HALF STRENGTH 1.25 MG/3 ML VIAL.NEB NEB SCH ×4 (03:08→15:35)
[2019-03-14] MEDS: PIPERACILLIN /TAZOBACTAM 3.375 G in IV D5W 100 ML IV SCH ×2 (03:57→12:24)
[2019-03-14] MEDS: IV NS 0.9% 1,000 ML IV PRN (04:05)
[2019-03-14] MEDS: CIPROFLOXACIN HCL 0.3% 5 ML BOTTLE EACHEYE SCH ×3 (06:10→18:00)
[2019-03-14 06:39] LABS: BASOPHILS % (AUTO) 0.6 % (0.0-2.0); EOSINOPHILS % (AUTO) 2.2 % (0.0-6.0); HEMATOCRIT 35 % (39-51); HEMOGLOBIN 12.1 g/dL (13.5-17.5); LYMPHOCYTES # (AUTO) 1.2 /CMM (0.8-4.8); LYMPHOCYTES % (AUTO) 15.4 % (20.0-44.0); MEAN CORPUSCULAR HGB CONC 34 g/dl (31.0-36.0); MEAN CORPUSCULAR VOLUME 100 fL (80-96); MONOCYTES # (AUTO) 0.9 /CMM (0.1-1.30); MONOCYTES % (AUTO) 11.5 % (2.0-12.0); NEUTROPHILS # (AUTO) 5.7 /CMM (1.8-8.9); NEUTROPHILS % (AUTO) 70.3 % (43.0-81.0); PLATELET COUNT (AUTO) 315 /CMM (150-450); RED BLOOD CELL COUNT(AUTO) 3.55 MIL/uL (4.5-6.0); WHITE BLOOD COUNT (AUTO) 8.1 K/uL (4.3-11.0)
--- NOTE | 2019-03-14 06:43 | NUR ---
RN NOTES SLEEPING BUT AROUSABLE, MORNING CARE RENDERED, DENIES PAIN, NO SOB, CALL LIGHT WITHIN REACH, SIDERAILSUPX2, PT. NEEDS ATTENDED
[2019-03-14 07:00] LABS: CALCIUM, SERUM 8.1 mg/dL (8.5-10.1); CREATININE 0.9 mg/dL (0.6-1.3); MAGNESIUM 2.3 mg/dL (1.8-2.4); PHOSPHORUS 5.2 mg/dL (2.5-4.9); POTASSIUM 4.1 mmol/L (3.5-5.1)
[2019-03-14] MEDS: ACETYLCYSTEINE 20% SOLN 800 MG/4 ML VIAL NEB SCH ×2 (07:28→15:35)
--- NOTE | 2019-03-14 07:30 | NUR ---
RN MS NOTES PT IN BED, AWAKE, ALERT AND VERBALLY RESPONSIVE, DENIES PAIN, NOT IN DISTRESS, CALM AND COOPERATIVE WITH CARE AND INTERVENTIONS, SITTER AT BEDSIDE, SAFETY PRECAUTIONS OBSERVED, CALL LIGHT WITHIN REACH, NEEDS ATTENDED, KEPT COMFORTABLE IN BED.
[2019-03-14 08:00] VITALS: BP 138/85
[2019-03-14] MEDS: LITHIUM CARBONATE 150 MG CAPSULE PO SCH (09:06)
[2019-03-14] MEDS: GUAIFENESIN LA 600 MG TABLET.SA PO SCH (09:06)
[2019-03-14] MEDS: SERTRALINE HCL 50 MG TABLET PO SCH (09:06)
[2019-03-14] MEDS: risperiDONE 1 MG TABLET PO SCH (09:06)
[2019-03-14] MEDS ORDERED: LEVO500T75 PO (10:22)
--- NOTE | 2019-03-14 13:00 | NUR ---
RN MS NOTES PT IN BED, RESTING, EASY TO AROUSE, NOT IN PAIN OR DISTRESS, SITTER AT BEDSIDE, CALM AND COOPERATIVE WITH CARE AND INTERVENTIONS, ASSISTED WITH MEALS, IV FLUIDS INFUSING WELL.
[2019-03-14 16:00] VITALS: BP 138/78
--- NOTE | 2019-03-14 18:33 | NUR ---
RN MS NOTES PT IN BED, AWAKE, ALERT TO SELF, VERBALLY RESPONSIVE, ASSISTED WITH ADL'S, FOR DISCHARGE TO GPS, PT INFORMED, PLAN OF CARE DISCUSSED WITH PT, VERBALIZED UNDERSTANDING, ASSISTED WITH DINNER, AWAITING TRANSFER TO GPS.
--- NOTE | 2019-03-14 19:34 | NUR ---
RN MS NOTES PT AWAKE, ALERT AND VERBALLY RESPONSIVE, NOT IN PAIN OR DISTRESS, TRANSPORTED PT TO GPS UNIT VIA BED, PT RECEIVED BY SONIA MORALES, DISCHARGE INSTRUCTIONS DISCUSSED WITH ADMITTING NURSE.
[2019-03-19] MEDS ORDERED: SUCR1ORA6 PO (11:38)
[2019-03-19] MEDS ORDERED: LEVO500T75 PO (11:38)
[2019-03-19] MEDS ORDERED: PANT40TA2 PO (11:38)
== END 2019-03-14 18:49 | DRG 177 ==
LOC: TELE 18:48 → MED 03-11 09:57
PROVIDERS: ADMIT Nurse Practitioner Acute Care; ATTEND Nurse Practitioner Acute Care
DX: J69.0 Pneumonitis due to inhalation of food and vomit (principal); G92 Toxic encephalopathy; E44.0 Moderate protein-calorie malnutrition; F10.239 Alcohol dependence with withdrawal, unspecified; F31.5 Bipolar disorder, current episode depressed, severe, with psychotic features; I10 Essential (primary) hypertension; D72.829 Elevated white blood cell count, unspecified; Z68.26 Body mass index [BMI] 26.0-26.9, adult; E88.09 Other disorders of plasma-protein metabolism, not elsewhere classified; B85.2 Pediculosis, unspecified; J40 Bronchitis, not specified as acute or chronic
CPT/HCPCS: 36415; 71045-TC; 80048-TC; 80053-TC; 80061-TC; 81000-TC; 83605-TC; 83735-TC; 84100-TC; 85025-TC; 87040-TC; 87081-TC; 92526; 92611-TC; 94667-TC; 94668-TC; 94760-TC; 94799-TC; 97110-TC; 97112-TC; 97530-TC; A4216; A4349; G0378; J2543; J7030; J7060

== ENCOUNTER 2019-03-14 21:56 | Inpatient (IN) | payer MEDICARE, OTHER ==
[~2019-03-14] VITALS: Ht 170.2 cm; Wt 80.7 kg
[2019-03-14 20:00] VITALS: BP 134/70
[~2019-03-14 21:56] MED LIST: CHLO25CA22 PO; CIPR2.5D LEFTEYE; CIPR2.5D RIGHTEYE; HYDR-4076 PO; LEVO500T75 PO; LITH300T3 PO; LORA-259 PO; POLY15DR40 OP; RISP1TAB7 PO; SERT50TA PO
[2019-03-14] MEDS ORDERED: MAGNESIUM HYDROXIDE 30 ML UDC PO PRN (22:30)
[2019-03-14] MEDS ORDERED: BLOOD SUGAR DIAGNOSTIC 1 EACH STRIP IN ONE (22:30)
[2019-03-14] MEDS ORDERED: ACETAMINOPHEN 325 MG TABLET PO PRN (22:30)
[2019-03-14] MEDS ORDERED: TEMAZEPAM 7.5 MG CAPSULE PO PRN (22:30)
[2019-03-14] MEDS ORDERED: MAG HYDROX/AL HYDROX/SIMETH 30 ML UDC PO PRN (22:30)
[2019-03-14] MEDS ORDERED: LORAZEPAM 0.5 MG TABLET PO PRN (22:30)
--- NOTE | 2019-03-14 23:45 | NUR ---
GPS/DESTINATION IMAGINATION COORDINATOR NOTE: ADMITTED A 68 YEAR OLD MALE FROM [facility] FLOOR [facility] ON 5249 HOLD FOR GD. CAME TO THE UNIT AROUND 190 Addendum: 03/14/19 at 2359 by VIKTOR HERNADEZ RN CAME TO THE UNIT AROUND 1930 ACCOMPANIED BY HIS RN. PER HOLD PATIENT WAS BROUGHT IN BY AMBULANCE AFTER POLICE FOUND HIM TRESPASSING AND COVERED WITH FECES AND INTOXICATED. PATIENT SHOWS NO S/S OF ANY PAIN AT THIS TIME. A/O X2. CALM, COOPERATIVE, LABILE, DEPRESSED, INTERACTS WHEN ENGAGED. BELONGINGS INVENTORIED AND CHECKED FOR CONTRABAND. PATIENT'S GUIDE AND MEDICATION RULES GIVEN. PATIENT REFUSED SKIN ASSESSMENT, MRSA SCREEN DONE. MED RECON DONE BY DR. AHUJA, SHE HAS SEEN THE PATIENT. ENVIRONMENTAL SAFETY CHECK DONE. BED LOCKED AND PLACED ON LOWEST POSITION FOR SAFETY. WILL CONTINUE TO MONITOR Q 15 MINS. FOR SAFETY AND BEHAVIOR.
[2019-03-15 07:18] LABS: BASOPHILS % (AUTO) 0.5 % (0.0-2.0); HEMATOCRIT 38 % (39-51); HEMOGLOBIN 12.7 g/dL (13.5-17.5); LYMPHOCYTES # (AUTO) 1.4 /CMM (0.8-4.8); LYMPHOCYTES % (AUTO) 13.5 % (20.0-44.0); MEAN CORPUSCULAR HGB CONC 34 g/dl (31.0-36.0); MEAN CORPUSCULAR VOLUME 99 fL (80-96); MONOCYTES # (AUTO) 1.1 /CMM (0.1-1.30); NEUTROPHILS # (AUTO) 7.6 /CMM (1.8-8.9); PLATELET COUNT (AUTO) 338 /CMM (150-450); RED BLOOD CELL COUNT(AUTO) 3.79 MIL/uL (4.5-6.0); WHITE BLOOD COUNT (AUTO) 10.4 K/uL (4.3-11.0)
[2019-03-15 07:29] LABS: ALBUMIN 2.5 g/dL (3.4-5.0); BILIRUBIN,TOTAL 0.4 mg/dL (0.2-1.0); CALCIUM, SERUM 8.4 mg/dL (8.5-10.1); CREATININE 0.9 mg/dL (0.6-1.3); MAGNESIUM 1.9 mg/dL (1.8-2.4); POTASSIUM 4.3 mmol/L (3.5-5.1); TOTAL PROTEIN, SERUM 6.2 g/dL (6.4-8.2)
[2019-03-15 07:49] LABS: CHOLESTEROL 110 mg/dL (<200); HDL CHOLESTEROL 28 mg/dL (40-60); LDL 72 mg/dL (0-99); TRIGLYCERIDES 94 mg/dL (30-150)
[2019-03-15 08:00] VITALS: BP 133/80
[2019-03-15] MEDS: LEVOFLOXACIN (500MG) 500 MG TABLET PO SCH (09:03)
--- NOTE | 2019-03-15 09:05 | NUR ---
Psychosocial Note: I, Susan Lang SILICA SPRAY MIXER, attest to the patient�s previous psychosocial information dated March 05, 2019. Update On Events leading to Admission and Discharge Plan: Pt has returned to the Geropsych Unit within 6 days of his previous discharge date. The pt was discharged to the Medical/Surgical floor due to pneumonia. The current plan is to increase the patient on his medications and discharge him to a Long-Term Facility. Per pt, he stated, "Can you please help me get in to a place." Patient is alert and oriented x3. Pt is ambulatory but uses a walker for assistance. Pts insight and judgement is poor. Pts thought process is incoherent and disorganized with tangential and hyperverbal speech. Pts mood appears labile with congruent affect. Pt would also become irritable when SW interjected and attempted to redirect pt. SW will work with the pt and the MD regarding appropriate discharge planning. SW will form a safe and proper discharge.
--- NOTE | 2019-03-15 13:51 | NUR ---
WOUND CARE CONSULT: PT PRESENTS WITH INCONTINENCE AND DRY SCRATCHES TO HIS BACK, PRESENT ON ADMISSION. RECOMMENDATIONS MADE FOR SKIN PROTECTION. DISCUSSED WITH NURSING STAFF. WILL SEE PRN. Addendum: 03/15/19 at 1353 by YOLY BALDWIN WNDNU Amended: Links added.
[2019-03-15] MEDS ORDERED: Z GUARD REMEDY 2 OZ OINT TP PRN (14:00)
[2019-03-15] MEDS: Z GUARD REMEDY 2 OZ OINT TP SCH (14:45)
[2019-03-15] MEDS: risperiDONE 1 MG TABLET PO SCH (15:28)
[2019-03-15 16:00] VITALS: BP 122/76
[2019-03-15] MEDS: LITHIUM CARBONATE (300 MG CAP) 300 MG CAPSULE PO SCH (16:42)
[2019-03-15 20:19] VITALS: BP 104/71
[2019-03-16] MEDS: risperiDONE 1 MG TABLET PO SCH ×2 (03:26→13:32)
[2019-03-16 08:00] VITALS: BP 117/73
[2019-03-16] MEDS ORDERED: SERTRALINE HCL 50 MG TABLET PO SCH (09:00)
[2019-03-16] MEDS: LEVOFLOXACIN (500MG) 500 MG TABLET PO SCH (09:08)
[2019-03-16] MEDS: Z GUARD REMEDY 2 OZ OINT TP SCH (09:08)
[2019-03-16] MEDS: LITHIUM CARBONATE (300 MG CAP) 300 MG CAPSULE PO SCH ×3 (09:09→16:33)
[2019-03-16 16:00] VITALS: BP 96/60
[2019-03-16 20:00] VITALS: BP 128/71
[2019-03-17] MEDS: risperiDONE 1 MG TABLET PO SCH (02:02)
--- NOTE | 2019-03-17 05:25 | NUR ---
called and spoke to dr luis regarding pt vomited coffee ground. rn tray line supervisor informed of order transfer room/bed assigned to [facility]. will continue to monitor.
--- NOTE | 2019-03-17 05:42 | NUR ---
report given to jaswinder fonseca). waiting for callback to transfer the patient. will continue to monitor.
--- NOTE | 2019-03-17 06:56 | NUR ---
GPS/RN-PLACED A CALL TO AWAITING CALL BACK.ENDORSED TO AM CHARGE NURSE FOR F/U.
[2019-03-17] MEDS ORDERED: LORA1TAB PO (09:03)
[2019-03-17] MEDS ORDERED: MAG30ORA PO (09:03)
[2019-03-17] MEDS ORDERED: ACET-868 PO (09:03)
[2019-03-17] MEDS ORDERED: ALLA266C2 TP ×2 (09:03)
[2019-03-17] MEDS ORDERED: RISP0.253 PO (09:03)
[2019-03-17] MEDS ORDERED: MAGN400O6 PO (09:03)
[2019-03-17] MEDS ORDERED: SERT100T PO (09:03)
[2019-03-17] MEDS ORDERED: TEMA15CA PO (09:03)
[2019-03-17] MEDS ORDERED: LITH300T3 PO (09:03)
[2019-03-19] MEDS ORDERED: LEVO500T75 PO (11:38)
[2019-03-19] MEDS ORDERED: PANT40TA2 PO (11:38)
[2019-03-19] MEDS ORDERED: SUCR1ORA6 PO (11:38)
== END 2019-03-17 06:19 | DRG 885 ==
LOC: GPS 21:56
PROVIDERS: ADMIT Psychiatry & Neurology Psychiatry; ATTEND Student in an Organized Health Care Education/Training Program
DX: F31.64 Bipolar disorder, current episode mixed, severe, with psychotic features (principal); G92 Toxic encephalopathy; J69.0 Pneumonitis due to inhalation of food and vomit; E44.0 Moderate protein-calorie malnutrition; F10.239 Alcohol dependence with withdrawal, unspecified; I10 Essential (primary) hypertension; D72.829 Elevated white blood cell count, unspecified; Z68.27 Body mass index [BMI] 27.0-27.9, adult; D64.9 Anemia, unspecified; B85.2 Pediculosis, unspecified; J40 Bronchitis, not specified as acute or chronic; F15.10 Other stimulant abuse, uncomplicated
CPT/HCPCS: 36415; 80053-TC; 80061-TC; 83735-TC; 84100-TC; 85025-TC; 87081-TC; 97112-TC; 97530-TC

== ENCOUNTER 2019-03-17 06:33 | Inpatient (IN) | payer MEDICARE, OTHER ==
[~2019-03-17] VITALS: Ht 170.2 cm; Wt 77.6 kg
[~2019-03-17 06:33] MED LIST changes: -CHLO25CA22 PO; -CIPR2.5D LEFTEYE; -CIPR2.5D RIGHTEYE; -HYDR-4076 PO; -LITH300T3 PO; -LORA-259 PO; -POLY15DR40 OP; -RISP1TAB7 PO; -SERT50TA PO
[2019-03-17 08:00] VITALS: BP 102/69
[2019-03-17] MEDS ORDERED: MAGN400O6 PO (09:03)
[2019-03-17] MEDS ORDERED: LITH300T3 PO (09:03)
[2019-03-17] MEDS ORDERED: RISP0.253 PO (09:03)
[2019-03-17] MEDS ORDERED: ACET-868 PO (09:03)
[2019-03-17] MEDS ORDERED: TEMA15CA PO (09:03)
[2019-03-17] MEDS ORDERED: MAG30ORA PO (09:03)
[2019-03-17] MEDS ORDERED: LORA1TAB PO (09:03)
[2019-03-17] MEDS ORDERED: SERT100T PO (09:03)
[2019-03-17] MEDS ORDERED: ALLA266C2 TP ×2 (09:03)
[2019-03-17] MEDS ORDERED: MAG HYDROX/AL HYDROX/SIMETH 30 ML UDC PO PRN (09:30)
[2019-03-17] MEDS ORDERED: MAGNESIUM HYDROXIDE 30 ML UDC PO PRN (09:30)
[2019-03-17] MEDS ORDERED: Z GUARD REMEDY 2 OZ OINT TP PRN (09:30)
[2019-03-17] MEDS ORDERED: OCTREOTIDE 1,250 MCG in IV NS 0.9% 247.5 ML IV PRN (09:30)
[2019-03-17] MEDS ORDERED: ONDANSETRON HCL/PF 4 MG/2 ML VIAL IVP PRN (09:30)
[2019-03-17] MEDS ORDERED: PANTOPRAZOLE 40 MG VIAL IV SCH (09:30)
[2019-03-17] MEDS ORDERED: OCTREOTIDE 50 MCG in IV NS 0.9% 50 ML IV ONE (09:30)
[2019-03-17] MEDS ORDERED: TEMAZEPAM 15 MG CAPSULE PO PRN (09:30)
[2019-03-17] MEDS: IV NS 0.9% 1,000 ML IV PRN (10:11)
[2019-03-17 10:35] LABS: ALBUMIN 3.2 g/dL (3.4-5.0); BILIRUBIN,TOTAL 0.5 mg/dL (0.2-1.0); CALCIUM, SERUM 9.3 mg/dL (8.5-10.1); CREATININE 1.2 mg/dL (0.6-1.3); MAGNESIUM 2.4 mg/dL (1.8-2.4); PHOSPHORUS 4.8 mg/dL (2.5-4.9); POTASSIUM 4.1 mmol/L (3.5-5.1); TOTAL PROTEIN, SERUM 7.7 g/dL (6.4-8.2)
[2019-03-17 10:39] LABS: BASOPHILS % (AUTO) 0.4 % (0.0-2.0); EOSINOPHILS % (AUTO) 0.6 % (0.0-6.0); HEMATOCRIT 45 % (39-51); HEMOGLOBIN 15.3 g/dL (13.5-17.5); LYMPHOCYTES # (AUTO) 1.8 /CMM (0.8-4.8); LYMPHOCYTES % (AUTO) 13.7 % (20.0-44.0); MEAN CORPUSCULAR HGB CONC 34 g/dl (31.0-36.0); MEAN CORPUSCULAR VOLUME 99 fL (80-96); MONOCYTES # (AUTO) 0.9 /CMM (0.1-1.30); MONOCYTES % (AUTO) 7.1 % (2.0-12.0); NEUTROPHILS % (AUTO) 78.2 % (43.0-81.0); PLATELET COUNT (AUTO) 466 /CMM (150-450); RED BLOOD CELL COUNT(AUTO) 4.56 MIL/uL (4.5-6.0); WHITE BLOOD COUNT (AUTO) 12.8 K/uL (4.3-11.0)
[2019-03-17 10:41] LABS: THYROID STIMULATING HORMONE 4.3 uIU/mL (0.358-3.74)
[2019-03-17] MEDS: NEXIUM 40 MG VIAL IV SCH ×2 (11:53→21:15)
[2019-03-17] MEDS: LITHIUM CARBONATE (300 MG CAP) 300 MG CAPSULE PO SCH ×2 (13:28→17:07)
[2019-03-17] MEDS: LORAZEPAM 1 MG TABLET PO PRN (15:24)
[2019-03-17 16:00] VITALS: BP 90/67
[2019-03-17 18:46] LABS: HEMOGLOBIN 13.9 g/dL (13.5-17.5)
[2019-03-17] MEDS: risperiDONE 1 MG TABLET PO SCH (21:14)
[2019-03-18] VITALS: BP 90/61
[2019-03-18] MEDS: IV NS 0.9% 1,000 ML IV PRN (03:49)
[2019-03-18 06:40] LABS: BASOPHILS % (AUTO) 0.3 % (0.0-2.0); EOSINOPHILS % (AUTO) 1.4 % (0.0-6.0); HEMATOCRIT 40 % (39-51); HEMOGLOBIN 13.4 g/dL (13.5-17.5); LYMPHOCYTES # (AUTO) 1.8 /CMM (0.8-4.8); LYMPHOCYTES % (AUTO) 14.5 % (20.0-44.0); MEAN CORPUSCULAR HGB CONC 34 g/dl (31.0-36.0); MEAN CORPUSCULAR VOLUME 99 fL (80-96); MONOCYTES # (AUTO) 1.1 /CMM (0.1-1.30); MONOCYTES % (AUTO) 8.6 % (2.0-12.0); NEUTROPHILS # (AUTO) 9.2 /CMM (1.8-8.9); NEUTROPHILS % (AUTO) 75.2 % (43.0-81.0); PLATELET COUNT (AUTO) 351 /CMM (150-450); RED BLOOD CELL COUNT(AUTO) 4.04 MIL/uL (4.5-6.0); WHITE BLOOD COUNT (AUTO) 12.3 K/uL (4.3-11.0)
[2019-03-18 07:57] LABS: POTASSIUM 3.9 mmol/L (3.5-5.1)
[2019-03-18 08:00] VITALS: BP 103/55
[2019-03-18] MEDS: NEXIUM 40 MG VIAL IV SCH ×2 (08:20→21:34)
[2019-03-18] MEDS: Z GUARD REMEDY 2 OZ OINT TP SCH (09:00)
[2019-03-18 12:15] VITALS: BP 112/72
[2019-03-18] MEDS: risperiDONE 1 MG TABLET PO SCH ×2 (12:42→21:34)
[2019-03-18] MEDS: LEVOFLOXACIN (500MG) 500 MG TABLET PO SCH (12:42)
[2019-03-18] MEDS: LITHIUM CARBONATE (300 MG CAP) 300 MG CAPSULE PO SCH ×3 (12:43→16:47)
[2019-03-18] MEDS: SERTRALINE HCL 50 MG TABLET PO SCH (12:43)
[2019-03-18 16:00] VITALS: BP 101/68
[2019-03-18] MEDS: SUCRALFATE 1 G/10 ML UDC PO SCH ×2 (16:47→21:34)
[2019-03-18 20:00] VITALS: BP 110/56
[2019-03-19] MEDS: IV NS 0.9% 1,000 ML IV PRN (01:21)
[2019-03-19 04:00] VITALS: BP 101/69
[2019-03-19] MEDS: SUCRALFATE 1 G/10 ML UDC PO SCH ×3 (07:35→17:00)
[2019-03-19 08:00] VITALS: BP 114/70
[2019-03-19] MEDS: SERTRALINE HCL 50 MG TABLET PO SCH (08:47)
[2019-03-19] MEDS: NEXIUM 40 MG VIAL IV SCH (08:47)
[2019-03-19] MEDS: LITHIUM CARBONATE (300 MG CAP) 300 MG CAPSULE PO SCH ×3 (08:47→17:00)
[2019-03-19] MEDS: risperiDONE 1 MG TABLET PO SCH (08:47)
[2019-03-19] MEDS: LORAZEPAM 1 MG TABLET PO PRN (09:02)
[2019-03-19] MEDS: Z GUARD REMEDY 2 OZ OINT TP SCH (09:21)
[2019-03-19 09:47] LABS: BASOPHILS % (AUTO) 0.4 % (0.0-2.0); EOSINOPHILS % (AUTO) 1.5 % (0.0-6.0); HEMATOCRIT 37 % (39-51); HEMOGLOBIN 12.7 g/dL (13.5-17.5); LYMPHOCYTES # (AUTO) 1.4 /CMM (0.8-4.8); LYMPHOCYTES % (AUTO) 12.4 % (20.0-44.0); MEAN CORPUSCULAR HGB CONC 34 g/dl (31.0-36.0); MEAN CORPUSCULAR VOLUME 98 fL (80-96); MONOCYTES % (AUTO) 8.8 % (2.0-12.0); NEUTROPHILS # (AUTO) 8.9 /CMM (1.8-8.9); NEUTROPHILS % (AUTO) 76.9 % (43.0-81.0); PLATELET COUNT (AUTO) 368 /CMM (150-450); RED BLOOD CELL COUNT(AUTO) 3.76 MIL/uL (4.5-6.0); WHITE BLOOD COUNT (AUTO) 11.5 K/uL (4.3-11.0)
[2019-03-19 09:51] LABS: CALCIUM, SERUM 8.1 mg/dL (8.5-10.1); CREATININE 0.9 mg/dL (0.6-1.3)
[2019-03-19] MEDS: LEVOFLOXACIN (500MG) 500 MG TABLET PO SCH (10:53)
[2019-03-19] MEDS ORDERED: LEVO500T75 PO (11:38)
[2019-03-19] MEDS ORDERED: SUCR1ORA6 PO (11:38)
[2019-03-19] MEDS ORDERED: PANT40TA2 PO (11:38)
[2019-03-19 16:00] VITALS: BP 131/81
== END 2019-03-19 18:27 | DRG 377 ==
LOC: TELE1 06:33 → MEDSG1 10:13
PROVIDERS: ADMIT Nurse Practitioner Acute Care; ATTEND Nurse Practitioner Acute Care
PROC: 0DB98ZX Excision of Duodenum, Via Natural or Artificial Opening Endoscopic, Diagnostic (ICD-10-PCS; principal; 2019-03-18)
PROC: 0DB78ZX Excision of Stomach, Pylorus, Via Natural or Artificial Opening Endoscopic, Diagnostic (ICD-10-PCS; 2019-03-18)
PROC: 0DB38ZX Excision of Lower Esophagus, Via Natural or Artificial Opening Endoscopic, Diagnostic (ICD-10-PCS; 2019-03-18)
DX: K29.91 Gastroduodenitis, unspecified, with bleeding (principal); J18.9 Pneumonia, unspecified organism; G92 Toxic encephalopathy; F10.239 Alcohol dependence with withdrawal, unspecified; F31.64 Bipolar disorder, current episode mixed, severe, with psychotic features; I10 Essential (primary) hypertension; F15.10 Other stimulant abuse, uncomplicated; K44.9 Diaphragmatic hernia without obstruction or gangrene; K22.70 Barrett's esophagus without dysplasia; K31.89 Other diseases of stomach and duodenum; D64.9 Anemia, unspecified
CPT/HCPCS: 36415; 71046; 80048-TC; 80053-TC; 80061-TC; 83735-TC; 84100-TC; 84439-TC; 84443-TC; 84481; 85025-TC; 85027-TC; 85610-TC; 86850-TC; 87081-TC; 97116-TC; 97530-TC; A4216; C9113; G0378; J2354; J2704; J3490; J7030; J7050